=== PATIENT | female | born 1995 | race Two or more races ===

== ENCOUNTER 2025-05-04 10:13 | Emergency (ER) | payer OTHER ==
[~2025-05-04] VITALS: Ht 154.9 cm; Wt 82.7 kg
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
[2025-05-04 13:19] LABS: Basophils # (auto) 0 10 ^3/uL (0-0.2); Basophils % (auto) 0.6 % (0.0-2.0); Eosinophils # (auto) 0.1 10 ^3/uL (0-0.8); Eosinophils % (auto) 1.3 % (0.0-7.0); Hematocrit 35.8 % (36.0-46.0); Hemoglobin 11.5 g/dL (12.2-16.2); Lymphocytes % (auto) 36.6 % (10.0-50.0); Mean Corpuscular Hemoglobin 26.6 pg (28.0-32.0); Mean Corpuscular Hgb Conc. 32.2 g/dL (32.0-36.0); Mean Corpuscular Volume 82.7 fL (80.0-100.0); Monocytes # (auto) 0.6 10 ^3/uL (0-1.3); Monocytes % (auto) 10.4 % (0.0-12.0); Neutrophils # (auto) 2.7 10 ^3/uL (1.6-8.6); Neutrophils % (auto) 51.1 % (37.0-80.0); Platelet Count (auto) 300 10^3/uL (140-450); Red Blood Cells 4.33 10^6/uL (4.0-5.20); Red Cell Distribution Width 15.5 % (11.8-14.3); White Blood Cell 5.3 10^3/uL (4.4-10.8)
[2025-05-04 13:34] LABS: Alanine Aminotransferase 15 U/L (7-40); Albumin 4.5 g/dL (3.2-4.8); Alkaline Phosphatase 56 U/L (46-116); Anion Gap 7 (5-15); Aspartate Aminotransferase 20 U/L (<34); BUN/Creatinine Ratio 13.3 (10.0-20.0); Bilirubin, Total 0.4 mg/dL (0.2-1.0); Blood Urea Nitrogen 13 mg/dL (9-23); Carbon Dioxide 28 mmol/L (20-31); Chloride 105 mmol/L (98-107); Creatine Kinase IFCC 139 U/L (34-145); Glucose 90 mg/dL (74-106); Potassium 4.7 mmol/L (3.5-5.1); Sodium 140 mmol/L (136-145); Total Protein 7.6 g/dL (5.7-8.2)
[2025-05-04 13:35] LABS: Calcium 10.4 mg/dL (8.7-10.4)
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
[2025-05-04 17:02] VITALS: BP 132/88; PULSE 67; RESP 20; TEMP 97.6; O2SAT 100
--- NOTE | 2025-05-06 10:25 | ECG ---
[facility] Test Date: 2025-05-04 Test Time: 15:22:22 Pat Name: JUSTIN SHOEMAKER Department: ER Room: Gender: F Iv Rn: HEIDI : 1995 Requested By: RAMOS CANTOR Order Number: [id number] Reading MD: Bairon Em Measurements Intervals [place] Rate: 71 P: -38 CO: 126 QRS: 74 QRSD: 106 T: 26 QT: 419 QTc: 456 Interpretive Statements Sinus rhythm Low voltage, precordial leads Electronically Signed On 05-07-2025 22:43:13 PDT by Bairon Em Please click the below link to view image of tracing.
== END 2025-05-04 17:08 | disposition home or self-care (01) ==
LOC: ER 10:21
DX: R07.89 Other chest pain (principal); R07.81 Pleurodynia; V89.2XXA Person injured in unspecified motor-vehicle accident, traffic, initial encounter; Y93.89 Activity, other specified; Y92.410 Unspecified street and highway as the place of occurrence of the external cause; Y99.8 Other external cause status
CPT/HCPCS: 36415; 71045; 80053; 82550; 84484; 85025; 93005